=== PATIENT | male | born 1980 | race Hispanic/Latino ===

== ENCOUNTER 2024-03-01 10:45 | Emergency (ER) | payer SELFPAY ==
[2024-03-01] MEDS ORDERED: DIPHENHYDRAMINE 50 MG/ML VIAL ONE (11:19)
[2024-03-01] MEDS ORDERED: METOCLOPRAMIDE 10 MG/2mL INJ ONE (11:19)
[2024-03-01] MEDS ORDERED: KETOROLAC 30 MG/ML INJ ONE (11:19)
[2024-03-01] MEDS ORDERED: NA CHLORIDE 0.9% 1,000 ML ONE (11:20)
--- NOTE | 2024-03-01 11:33 | RAD REPORT ---
EXAM DESCRIPTION: CT - Head Brain Wo Cont - 03/01/2024 11:20 am CLINICAL HISTORY: HEADACHE COMPARISON: No comparisons TECHNIQUE: All CT scans are performed using dose optimization technique as appropriate and may inclu de automated exposure control or mA/KV adjustment according to patient size. FINDINGS: No intracranial hemorrhage, hydrocephalus or extra-axial fluid collection.No areas of brai n edema or evidence of midline shift. Mucosal thickening in the left maxillary sinus. Some of the contents are calcified likely reflecting a chronic process. The calvarium is intact. IMPRESSION: No acute intracranial abnormality.
[2024-03-01 12:17] LABS: Absolute Lymphocytes (CBC) 1.3 K/uL (0.7-4.9); Absolute Monocytes 0.5 K/uL (0.1-1.3); Absolute Neutrophil 7.5 K/uL (1.8-8.0); Basophils % 0.3 % (0-1.3); Eosinophils % 0.4 % (0-4.4); Hematocrit 44.4 % (39.6-49.0); Hemoglobin 14.9 g/dL (13.6-17.9); Lymphocytes % 13.6 % (15.3-44.8); MCH 28.3 pg (27.0-35.0); MCHC 33.6 g/dL (32.0-36.0); MCV 84.2 fL (80-100); MPV 7.5 fL (7.6-11.3); Monocytes % 5.6 % (3.3-12.3); Neutrophils % 80.1 % (41.7-73.7); Nucleated Red Blood Cells % 0.1 % (0-0); Platelets 316 thou/uL (152-406); RBC Red Blood Cell Count 5.27 M/uL (4.33-5.43); Red Cell Distribution Width 12.8 % (12.1-15.2)
[2024-03-01 12:19] LABS: Specific Gravity 1.026 (1.005-1.030); Sqamous Epithelial None Seen /HPF (None Seen); Urine Bacteria None Seen /HPF (<20); Urine Bilirubin NEGATIVE (Negative); Urine Blood Negative (Negative); Urine Clarity Clear (Clear); Urine Color Light-Yellow (Yellow); Urine Culture Reflex Order NOT NEEDED; Urine Glucose NEGATIVE (Negative); Urine Ketones NEGATIVE (Negative); Urine Microscopic Reflex YN ORDER UMIC; Urine Mucus Slight /HPF (None Seen); Urine Nitrite NEGATIVE (Negative); Urine Protein TRACE (Negative); Urine RBC <5 /HPF (None Seen); Urine Urobilinogen Normal (Normal); Urine WBC None Seen /HPF (<5); Urine pH 6.5 (5.0-7.0)
[2024-03-01 12:26] LABS: Barbiturates NEGATIVE (NEGATIVE); Benzodiazepines NEGATIVE (NEGATIVE); Cocaine NEGATIVE (NEGATIVE); METHAMPHETAM NEGATIVE (NEGATIVE); Methadone NEGATIVE (NEGATIVE); Opiates NEGATIVE (NEGATIVE); Phencyclidine NEGATIVE (NEGATIVE); THC Cannibis NEGATIVE (NEGATIVE)
--- NOTE | 2024-03-01 13:09 | EDPHYS ---
Physician Documentation [facility] Name: Dalton Rodriguez Age: 43 yrs Sex: Male : 1980 Arrival Date: 03/01/2024 Time: 10:45 Bed 15 Private MD: ED Physician Familia Lin HPI: 03/01 12:38 This 43 yrs old Male presents to ER via Ambulatory with complaints of Headache.maira 12:38 The patient complains of pain to the left frontal area, left side of the back of head, maira left temporal area, left occipital area and left base of the skull. The patient describes the headache as aching. Onset: The symptoms/episode began/occurred 6 day(s) ago. Associated signs and symptoms: Pertinent positives: nausea. Severity of symptoms: At its worst the pain was moderate, in the emergency department the pain is unchanged. Headache History: Denies prior headaches. The patient has not experienced similar symptoms in the past. Historical: - Allergies: 10:53 No Known Allergies; aa5 - PMHx: 10:53 Migraine; aa5 - PSHx: 10:53 None; aa5 - Immunization history:: Adult Immunizations unknown. - Infectious Disease History:: Denies. - Social history:: Smoking status: Patient denies any tobacco usage or history of. - Family history:: not pertinent. ROS: 12:38 Constitutional: Negative for fever, chills, and weight loss, Eyes: Negative for injury, maira pain, redness, and discharge, ENT: Negative for injury, pain, and discharge, Neck: Negative for injury, pain, and swelling, Cardiovascular: Negative for chest pain, palpitations, and edema, Respiratory: Negative for shortness of breath, cough, wheezing, and pleuritic chest pain, Abdomen/GI: Negative for abdominal pain, nausea, vomiting, diarrhea, and constipation, Back: Negative for injury and pain, : Negative for injury, bleeding, discharge, and swelling, MS/Extremity: Negative for injury and deformity, Skin: Negative for injury, rash, and discoloration, Psych: Negative for depression, anxiety, suicide ideation, homicidal ideation, and hallucinations, Allergy/Immunology: Negative for hives, rash, and allergies, Endocrine: Negative for neck swelling, polydipsia, polyuria, polyphagia, and marked weight changes, Hematologic/Lymphatic: Negative for swollen nodes, abnormal bleeding, and unusual bruising, 12:38 Neuro: Positive for headache, Exam: 12:38 Constitutional: This is a well developed, well nourished patient who is awake, alert, maira and in no acute distress. Head/Face: Normocephalic, atraumatic. Eyes: Pupils equal round and reactive to light, extra-ocular motions intact. Lids and lashes normal. Conjunctiva and sclera are non-icteric and not injected. Cornea within normal limits. Periorbital areas with no swelling, redness, or edema. ENT: Nares patent. No nasal discharge, no septal abnormalities noted. Tympanic membranes are normal and external auditory canals are clear. Oropharynx with no redness, swelling, or masses, exudates, or evidence of obstruction, uvula midline. Mucous membranes moist. Neck: Trachea midline, no thyromegaly or masses palpated, and no cervical lymphadenopathy. Supple, full range of motion without nuchal rigidity, or vertebral point tenderness. No Meningismus. Chest/axilla: Normal chest wall appearance and motion. Nontender with no deformity. No lesions are appreciated. Cardiovascular: Regular rate and rhythm with a normal S1 and S2. No gallops, murmurs, or rubs. Normal PMI, no JVD. No pulse deficits. Respiratory: Lungs have equal breath sounds bilaterally, clear to auscultation and percussion. No rales, rhonchi or wheezes noted. No increased work of breathing, no retractions or nasal flaring. Abdomen/GI: Soft, non-tender, with normal bowel sounds. No distension or tympany. No guarding or rebound. No evidence of tenderness throughout. Back: No spinal tenderness. No costovertebral tenderness. Full range of motion. Male : Normal genitalia with no discharge or lesions. Skin: Warm, dry with normal turgor. Normal color with no rashes, no lesions, and no evidence of cellulitis. MS/ Extremity: Pulses equal, no cyanosis. Neurovascular intact. Full, normal range of motion. Neuro: Awake and alert, GCS 15, oriented to person, place, time, and situation. Cranial nerves II-XII grossly intact. Motor strength 5/5 in all extremities. Sensory grossly intact. Cerebellar exam normal. Normal gait. Psych: Awake, alert, with orientation to person, place and time. Behavior, mood, and affect are within normal limits. 12:38 Neck: Trachea: is midline with no obvious abnormalities, ROM/movement: is normal, no acute changes, limited range of motion, is not appreciated, Meningeal signs: are not present, Kernig's sign is negative, Brudzinski's sign is negative, Lymph nodes: no appreciated lymphadenopathy, Vital Signs: 10:53 BP 153 / 82; Pulse 84; Resp 16 S; Temp 97.8(TE); Pulse Ox 100% on R/A; Weight 74.84 kg aa5 (R); Height 5 ft. 7 in. (R); 13:20 BP 144 / 81; Pulse 81; Resp 18; Pulse Ox 99% on R/A; rs5 10:53 Body Mass Index 25.84 (74.84 kg, 170.18 cm) aa5 Borup Coma Score: 12:41 Eye Response: spontaneous(4). Motor Response: obeys commands(6). Verbal Response: maira oriented(5). Total: 15. MDM: 10:59 Patient medically screened. maira 12:41 Differential diagnosis: hypertensive headache, hyponatremia, migraine, neoplasm, maira sinusitis, subarachnoid bleed, trigeminal neuralgia, uremia, vasomotor headache. Data reviewed: vital signs, nurses notes, lab test result(s), EKG, radiologic studies, CT scan. Consideration of Admission/Observation Escalation of care including admission/observation considered. I considered the following discharge prescriptions or medication management in the emergency department Medications were administered in the Emergency Department. See MAR. Independent interpretation of the following test(s) in the Emergency Department CT Scan: My interpretation is ct head nad. 03/01 11:01 Order name: CBC with Diff; Complete Time: 12:37 [facility] 03/01 11: Order name: Urinalysis w/ reflexes; Complete Time: 12:37 [facility] 03/01 11:01 Order name: UDS; Complete Time: 12:37 [facility] 03/01 11:01 Order name: CT Head Brain wo Cont; Complete Time: 12:05 [facility] Administered Medications: 11:15 Drug: NS 0.9% IV 1000 ml IV at 1 bolus Per protocol; 1000 mL bolus Route: IV; Rate: 1 rs5 bolus; Site: left antecubital; 11:30 Follow up: Response: No adverse reaction rs5 12:25 Follow up: IV Status: Completed infusion rs5 11:15 Drug: Ketorolac IVP 30 mg IVP once Route: IVP; Site: left antecubital; rs5 11:30 Follow up: Response: No adverse reaction; Pain is decreased rs5 11:15 Drug: metoCLOPramide IVP 10 mg IVP once; over 1 to 2 minutes Route: IVP; Site: left rs5 antecubital; 11:30 Follow up: Response: No adverse reaction rs5 11:15 Drug: diphenhydrAMINE IVP 50 mg IVP once Route: IVP; Site: left antecubital; rs5 11:30 Follow up: Response: No adverse reaction rs5 12:14 Not Given (Patient Refused): prochlorperazinesuppository 25 mg IA once rs5 Disposition Summary: 03/01/24 13:08 Discharge Ordered Notes: Location: Home maira Problem: new maira Symptoms: have improved maira Condition: Stable maira Diagnosis - Headache maira Followup: maira - With: Private Physician - When: 2 - 3 days - Reason: Recheck today's complaints, Continuance of care, Re-evaluation by your physician Followup: maira - With: Korey Wick MD - When: 2 - 3 days - Reason: Recheck today's complaints, Continuance of care, Re-evaluation by your physician Discharge Instructions: - Discharge Summary Sheet maira - General Headache Without Cause maira - Migraine Headache maira - Sinusitis, Adult maira - Sinusitis, Adult, [id number] maira - Migraine Headache, [id number] maira - General Headache Without Cause, [id number] maira Forms: - Medication Reconciliation Form maira - Antibiotic Education maira - Prescription Opioid Use maria - Patient Portal Instructions [facility] - Leadership Thank You Letter [facility] Prescriptions: - Fioricet with Codeine [id number] mg Oral capsule - take 2 capsule ORAL route every 4 hours as needed for pain; do not exceed 6 maira caps per day; 18 capsule; Refills: 0, Product Selection Permitted - ondansetron 4 mg Oral Tablet,disintegrating - take 1 tablet ORAL route every 6-8 hours for 5 days prn nausea; 20 tablet; maira Refills: 0, Product Selection Permitted - Ibuprofen 600 mg Oral Tablet - take 1 tablet ORAL route every 6 hours As needed take with food; 30 tablet; maira Refills: 0, Product Selection Permitted - Bactrim DS 800-160 mg Oral Tablet - take 1 tablet ORAL route every 12 hours for 10 days; 20 tablet; Refills: 0, maira Product Selection Permitted Signatures: Dispatcher [employer] Familia Matthews, Yeny Devlin MD, cha, RN RN aa5 Braxton Vicente RN RN rs5
--- NOTE | 2024-03-01 13:09 | ER ---
Nurse's Notes [facility] Name: Dalton Rodriguez Age: 43 yrs Sex: Male : 1980 Arrival Date: 03/01/2024 Time: 10:45 Bed 15 Private MD: Diagnosis: Headache Presentation: 03/01 10:53 Chief complaint: Patient states: headache to left side of back of head x 1 week. Pt aa5 states "I have a headache and I can't get rid of it". Denies nausea/vomiting/denies any trauma. Coronavirus screen: headache. Ebola Screen: Patient denies travel to an Ebola-affected area in the 21 days before illness onset. Initial Sepsis Screen: Does the patient meet any 2 criteria? No. Patient's initial sepsis screen is negative. Does the patient have a suspected source of infection? No. Patient's initial sepsis screen is negative. Risk Assessment: Do you want to hurt yourself or someone else? Patient reports no desire to harm self or others. Onset of symptoms was February 2024. 10:53 Method Of Arrival: Ambulatory aa5 10:53 Acuity: HANS 3 aa5 Triage Assessment: 10:53 Headache History: The patient has had previous headaches and this one is similar to rs5 previous episodes. General: Appears. General: Appears in no apparent distress. uncomfortable, Behavior is calm, cooperative. Pain: Complains of pain in head Pain currently is 8 out of 10 on a pain scale. Quality of pain is described as aching, Pain began Also complains of. Historical: - Allergies: 10:53 No Known Allergies; aa5 - PMHx: 10:53 Migraine; aa5 - PSHx: 10:53 None; aa5 - Immunization history:: Adult Immunizations unknown. - Infectious Disease History:: Denies. - Social history:: Smoking status: Patient denies any tobacco usage or history of. - Family history:: not pertinent. Screenin:53 [facility] ED Fall Risk Assessment (Adult) History of falling in the last 3 months, rs5 including since admission No falls in past 3 months (0 pts) Confusion or Disorientation No (0 pts) Intoxicated or Sedated No (0 pts) Impaired Gait No (0 pts) Mobility Assist Device Used No (0 pt) Altered Elimination No (0 pt) Score/Fall Risk Level 0 - 2 = Low Risk Oriented to surroundings, Maintained a safe environment. Abuse screen: Denies threats or abuse. Nutritional screening: No deficits noted. Tuberculosis screening: No symptoms or risk factors identified. Assessment: 10:53 General: Appears in no apparent distress. comfortable, Behavior is calm, cooperative. rs5 Pain: Complains of pain in head Pain currently is 8 out of 10 on a pain scale. Quality of pain is described as aching, Is continuous. Neuro: Level of Consciousness is awake, alert, obeys commands, Oriented to person, place, time, situation. Cardiovascular: Patient's skin is warm and dry. Rhythm is regular. Respiratory: Airway is patent Respiratory effort is even, unlabored, Respiratory pattern is regular, symmetrical. GI: Abdomen is round non-distended, Abd is soft and non tender X 4 quads. : No signs and/or symptoms were reported regarding the genitourinary system. EENT: No signs and/or symptoms were reported regarding the EENT system. Derm: Skin is intact, Skin is pink, warm \\T\\ dry. Musculoskeletal: Range of motion: intact in all extremities. 12:20 Reassessment: Patient and/or family updated on plan of care and expected duration. Pain rs5 level reassessed. Patient is alert, oriented x 3, equal unlabored respirations, skin warm/dry/pink. Patient denies pain at this time. Patient states feeling better. Patient states symptoms have improved. 13:20 Reassessment: No changes from previously documented assessment. rs5 Vital Signs: 10:53 BP 153 / 82; Pulse 84; Resp 16 S; Temp 97.8(TE); Pulse Ox 100% on R/A; Weight 74.84 kg aa5 (R); Height 5 ft. 7 in. (R); 13:20 BP 144 / 81; Pulse 81; Resp 18; Pulse Ox 99% on R/A; rs5 10:53 Body Mass Index 25.84 (74.84 kg, 170.18 cm) aa5 Berenice Coma Score: 12:41 Eye Response: spontaneous(4). Motor Response: obeys commands(6). Verbal Response: maira oriented(5). Total: 15. ED Course: 10:50 Patient arrived in ED. mg5 10:53 Arm band placed on. aa5 10:53 Patient has correct armband on for positive identification. Placed in gown. Bed in low rs5 position. Call light in reach. Side rails up X2. 10:53 No provider procedures requiring assistance completed. rs5 10:55 Triage completed. aa5 10:59 Familia Lin MD is Attending Physician. maira 11:11 Braxton Vicente, RN is Primary Nurse. rs5 11:22 CT Head Brain wo Cont In Process Unspecified. EDMS 13:08 Korey Wick MD is Referral Physician. maira 13:20 IV discontinued, intact, bleeding controlled, No redness/swelling at site. Pressure rs5 dressing applied. Administered Medications: 11:15 Drug: NS 0.9% IV 1000 ml IV at 1 bolus Per protocol; 1000 mL bolus Route: IV; Rate: 1 rs5 bolus; Site: left antecubital; 11:30 Follow up: Response: No adverse reaction rs5 12:25 Follow up: IV Status: Completed infusion rs5 11:15 Drug: Ketorolac IVP 30 mg IVP once Route: IVP; Site: left antecubital; rs5 11:30 Follow up: Response: No adverse reaction; Pain is decreased rs5 11:15 Drug: metoCLOPramide IVP 10 mg IVP once; over 1 to 2 minutes Route: IVP; Site: left rs5 antecubital; 11:30 Follow up: Response: No adverse reaction rs5 11:15 Drug: diphenhydrAMINE IVP 50 mg IVP once Route: IVP; Site: left antecubital; rs5 11:30 Follow up: Response: No adverse reaction rs5 12:14 Not Given (Patient Refused): prochlorperazinesuppository 25 mg AR once rs5 Medication: 14:21 VIS not applicable for this client. rs5 Outcome: 13:08 Discharge ordered by . maira 13:20 Discharged to home ambulatory, rs5 13:20 Condition: stable 13:20 Discharge instructions given to patient, family, Instructed on discharge instructions, follow up and referral plans. medication usage, Demonstrated understanding of instructions, follow-up care, medications, Prescriptions given X 3, 13:24 Patient left the ED. rs5 Signatures: Dispatcher [employer] EDMN Familia Lin MD MD cha Calderon, Audri, RN RN aa5 Braxton Vicente, MORTEZA RN rs5 Beulah Pham mg5
[2024-03-01 13:43] VITALS: BP 153/82; TEMP 97.8; O2SAT 100
== END 2024-03-01 13:24 | disposition home or self-care (01) ==
LOC: ER 10:45
DX: R51.9 Headache, unspecified (principal)
CPT/HCPCS: 36415; 70450; 80307; 81001; 85025; 96361; 96374; 96375; 99284; J1200; J2765; J7030